=== PATIENT | male | born 1985 | race Hispanic/Latino ===

== ENCOUNTER 2018-10-01 22:45 | Emergency (ER) | payer OTHER ==
[2018-10-01 22:47] VITALS: RESP 16
[2018-10-01] MEDS ORDERED: Sodium Chloride 0.9% 1,000 ML IV STA (23:30)
--- NOTE | 2018-10-02 00:06 | ED PDOC ---
HPI: Abdomen Time Seen by Provider: 10/01/18 22:58 Chief Complaint (Nursing): GI Problem Chief Complaint (Provider): GI problem History Per: Patient History/Exam Limitations: no limitations Onset/Duration Of Symptoms: Days (1x) Current Symptoms Are (Timing): Still Present Severity: Moderate Location Of Pain/Discomfort: Epigastric Associated Symptoms: Nausea, Vomiting, Diarrhea Additional Complaint(s): 32 year old male with a past medical history of intestinal perforation presents to the ED for an evaluation of nausea, vomiting, and diarrhea that started today. Patient reports having 5x episodes of non-bilious non-bloody vomiting and 6x episodes of watery diarrhea, with the last few episodes being red tinged. Patient also complains of epigastric pain. Patient states that he is concerned because of prior abdominal surgery. PMD: None provided Past Medical History Reviewed: Historical Data, Nursing Documentation, Vital Signs Vital Signs: Last Vital Signs Temp 98.9 F 10/01/18 22:46 Pulse 105 H 10/01/18 22:46 Resp 16 10/01/18 22:46 BP 124/92 H 10/01/18 22:46 Pulse Ox 97 10/01/18 22:46 KATHY Report Viewed: Yes - Medical History Other PMH: intestinal perforation - Surgical History Other surgeries: abdominal surgery for intestinal perforation - Family History Family History: States: Unknown Family Hx - Social History Current smoker - smoking cessation education provided: No Alcohol: Occasional Drugs: Denies - Home Medications Home Medications: Ambulatory Orders Medication Instructions Recorded Ondansetron ODT [Zofran ODT] 4 mg PO Q8 PRN #12 odt 10/02/18 - Allergies Allergies/Adverse Reactions: Allergies Allergy/AdvReac Type Severity Reaction Status Date / Time No Known Allergies Allergy Verified 10/01/18 22:46 Review of Systems ROS Statement: Except As Marked, All Systems Reviewed And Found Negative Gastrointestinal: Positive for: Nausea, Vomiting (5x episodes non-bloody non- bilious), Abdominal Pain (epigastric), Diarrhea (6x episodes of watery diarrhea, last 3x episodes red tinged) Physical Exam - Reviewed Nursing Documentation Reviewed: Yes Vital Signs Reviewed: Yes - Physical Exam Appears: Positive for: Well, Non-toxic, No Acute Distress Head Exam: Positive for: ATRAUMATIC, NORMOCEPHALIC Skin: Positive for: Normal Color, Warm, Dry Cardiovascular/Chest: Positive for: Regular Rate, Rhythm Respiratory: Positive for: Normal Breath Sounds Gastrointestinal/Abdominal: Positive for: Soft, Tenderness (epigastric region). Negative for: Guarding, Rebound Neurologic/Psych: Positive for: Alert, Oriented (3x) - Laboratory Results Result Diagrams: 10/01/18 00:07 10/01/18 00:07 - ECG O2 Sat by Pulse Oximetry: 97 (RA) Pulse Ox Interpretation: Normal Medical Decision Making Medical Decision Makin:58 Initial impression: 32 year old male with a history presents to the ED with nausea, vomiting, diarrhea, and abdominal pain. Patient is very well appearing with normal vital signs. Not concerned for perforation given that patient is very well appearing, and given his symptoms. More likely to be gastrointestinal disease such as gastroenteritis. Will treat symptoms. Initial plan: * XRay obstructive series * CMP * lipase * CBC with differential * IV NS 1,000 ml IV 1,000 mls/hr * zofran 4 mg IVP * reevaluation 200 Patient is tolerating PO, states he is feeling "a lot better" Results given to patient Will prescribe zofran ODT [facility] referral given as patient has no PMD Very well appearing upon discharge --- Scribe Attestation: Documented Corazon Lester, acting as a scribe for Jabari Robbins MD. Provider Scribe Attestation: All medical record entries made by the Scribe were at my direction and personally dictated by me. I have reviewed the chart and agree that the record accurately reflects my personal performance of the history, physical exam, medical decision making, and the department course for this patient. I have also personally directed, reviewed, and agree with the discharge instructions and disposition. Disposition - Clinical Impression Clinical Impression: Gastroenteritis - Disposition Referrals: [facility] [Outside] Disposition: Routine/Home Disposition Time: 02:00 Condition: IMPROVED Prescriptions: Ondansetron ODT [Zofran ODT] 4 mg PO Q8 PRN #12 odt PRN Reason: Nausea/Vomiting Instructions: Viral Gastroenteritis, Adult (DC) Forms: [employer] (Slovenian)
[2018-10-02 00:25] LABS: BASO % 0.4 % (0.0-2.0); EOS % 0.4 % (0.0-4.0); HEMOGLOBIN 16.2 g/dL (12.0-18.0); LYMPH # 0.3 K/uL (1.0-4.3); MEAN CELL VOLUME 88.2 fl (80.0-94.0); MEAN CORPUSCULAR HEMOGLOBIN 29.8 pg (27.0-31.0); MEAN CORPUSCULAR HGB CONC 33.8 g/dL (33.0-37.0); MEAN PLATELET VOLUME 8.4 fl (7.2-11.7); MONO # 0.7 K/uL (0.0-0.8); MONO % 6.3 % (0.0-10.0); NEUT % 89.9 % (50.0-75.0); NRBC % 0.1 % (0.0-0.0); PLATELET COUNT 309 K/uL (130-400); RBC 5.44 Mil/uL (4.40-5.90); RED CELL DISTRIBUTION WIDTH 13.2 % (11.5-14.5); WHITE BLOOD COUNT 11.1 K/uL (4.8-10.8)
[2018-10-02 00:38] LABS: ALT/SGPT 40 U/L (21-72); AST/SGOT 37 U/L (17-59); BLOOD UREA NITROGEN 20 mg/dl (9-20); CALCIUM 10.5 mg/dL (8.4-10.2); GFR NON-AFRICAN AMERICAN 59; LIPASE 41 U/L (23-300)
[2018-10-02 01:00] LABS: BANDS 4 % (0-2); LYMPHOCYTE 7 % (20-50); MONOCYTE 7 % (0-10); NEUTROPHIL 82 % (42-75); PLATELET ESTIMATE NORMAL (NORMAL); TOTAL CELLS COUNTED 100
[2018-10-02 02:42] VITALS: BP 121/88; PULSE 96; TEMP 98.6
[2018-10-02 06:03] VITALS: O2SAT 97
--- NOTE | 2018-10-02 10:29 | RAD ---
Date of service: 10/01/2018 PROCEDURE: Radiographs of the chest and abdomen (obstructive series) HISTORY: abd pain, n/v/d COMPARISON: No prior. TECHNIQUE: AP radiograph of the chest, with upright and supine radiographs of the abdomen. FINDINGS: CHEST: Lungs: Clear. Cardiovascular: Normal size heart. No pulmonary vascular congestion. No aortic atherosclerotic calcification present Pleura: No pleural fluid. No pneumothorax. Other findings: None. ABDOMEN AND PELVIS: Bowel: Nonspecific bowel gas pattern with a paucity of gas seen in the abdomen except for the left upper quadrant at the region of the gastric viscus. No abnormal intra-abdominal calcifications are identified. The bilateral psoas margins are partially obscured. Free air: None. Bones: Unremarkable. Other findings: None. IMPRESSION: Paucity of bowel gas and lack of definition of the psoas muscles it makes this abdomen examination indeterminate although no gross free intrarenal gas collections identified or abnormal internal calcifications. Clinically correlate as to the potential need for possible follow-up CT of the abdomen pelvis with contrast. Negative single frontal chest radiograph.
== END 2018-10-02 02:20 | disposition home or self-care (01) ==
LOC: H.ER 22:45
DX: K52.9 Noninfective gastroenteritis and colitis, unspecified (principal)
CPT/HCPCS: 74022; 80053; 83690; 85025; 96361; 96374; 99284; J2405; J7030